=== PATIENT | female | born 1955 | race Caucasian/White ===

== ENCOUNTER → 2016-08-05 | Outpatient (CLI) | payer OTHER ==
[2013-08-14 15:00] VITALS: BP 115/65
[~2016-08-05] MED LIST: ASPI-630 PO; CYCL10TA2 PO; GLIP10TA13 PO; METF-620 PO; SERT100T PO; SULF1TAB24 PO
--- NOTE | 2016-08-05 16:08 | RAD ---
Indication: Postmenopausal bleeding. Transabdominal and transvaginal pelvic sonography was performed. The uterus measures 9.6 x 5.2 x 6.3 cm. The endometrium is abnormally thickened measuring 16 mm. No uterine mass is detected. The right ovary measures 3.0 x 1.6 x 2.3 cm and the left ovary measures 2.7 x 2.0 x 2.1 cm. No adnexal mass or free fluid is seen. Impression: Abnormally thickened endometrium at 16 mm. Although this could be due to hyperplasia, other etiologies such as neoplasm cannot be entirely excluded. The study is otherwise unremarkable.
== END | disposition home or self-care (01) ==
LOC: US 14:47
PROVIDERS: ATTEND Internal Medicine
DX: N95.0 Postmenopausal bleeding (principal)
CPT/HCPCS: 76856